=== PATIENT | male | born 1950 | race African-American/Black ===

== ENCOUNTER 2020-10-02 22:53 | Emergency (ER) | payer MEDICARE ==
[~2020-10-02] VITALS: Ht 165.1 cm; Wt 68.0 kg
[2020-10-02] MEDS ORDERED: fentaNYL PF VIAL 100 MCG/2 ML VIAL IM ONE (23:00)
[2020-10-03] MEDS ORDERED: HYDR-2759 PO (00:33)
--- NOTE | 2020-10-03 00:36 | PHYS DOC ---
General Adult EDM: Chief Complaint: MECHANICAL FALL HPI: HPI: Patient is a 70 year [id number] male presents for evaluation of left arm pain. Prior to arrival patient was rolling off of his couch and caught himself with an extended left upper extremity. Patient heard and felt a pop in his elbow and his shoulder. Sudden onset of pain and decreased mobility left upper extremity. Patient denies any other injuries. On exam patient pain is primarily in his shoulder region. Patient states difficulty flexing and extending his fingers. Patient's radial and ulnar pulses populated cap refill less than 2 seconds. Review of Systems: Review of Systems: Review of systems: Constitutional symptoms- No fever, no chills. Eyes- No Discharge, No Visual Loss Respiratory symptoms- No shortness of breath, No wheezing, No Dyspnea on Exertion Cardiovascular Systems; No chest pain, No Palpitations, No syncope Gastrointestinal symptoms: NO abdominal pain, no nausea, no vomiting or diarrhea. Genitourinary symptoms: No dysuria. Musculoskeletal symptoms: No back pain Positive extremity pain. NEUROLOGICAL Symptoms: No headache, no generalized weakness; No focal Weakness Skin: No rash. Heart Score: C/O Chest Pain: N/A Risk Factors: Risk Factors: DM, Current or recent (<one month) smoker, HTN, HLP, family history of CAD, obesity. Risk Scores: Score 0 - 3: 2.5% MACE over next 6 weeks - Discharge Home Score 4 - 6: 20.3% MACE over next 6 weeks - Admit for Clinical Observation Score 7 - 10: 72.7% MACE over next 6 weeks - Early Invasive Strategies Current Medications: Current Medications Medications (Trade) Dose Ordered Sig/[facility] Start Time Stop Time Status Last Admin Dose Admin Fentanyl Citrate (Fentanyl 2ml Vial) 50 mcg 1X ONCE 10/02/20 23:00 10/02/20 23:38 DC 10/02/20 23:37 50 MCG Allergies: Allergies: Allergies Coded Allergies Type Severity Reaction Last Updated Verified Penicillins Allergy Severe 10/02/20 Yes Physical Exam: PE: General: alert, no acute distress. Skin: warm, dry and intact, no erythema, no rash. HENT: bilateral external ears normal, oropharynx moist, nose normal. Head:: Normocephalic, atraumatic. Neck: Trachea midline. Eyes: EOMI, Normal conjunctiva, No drainage CARDIOVASCULAR: Regular rate and rhythm RESPIRATORY: No respiratory distress Back: Full range of motion. MUSCULOSKELETAL: decreased rom left upper extremity, tenderness proximal humerus, TTP mid shaft humerus, decreased extension of fingers, decreased steel melter, NV intact, CR<2 seconds LUE GASTROINTESTINAL: Abdomen soft without rebound or guarding. NEUROLOGICAL: Alert and noted to person, place and time. No neurological deficits observed Psychiatric: Cooperative. Normal judgment Current Patient Data: Vital Signs: Vital Signs Date Time Temp Pulse Resp B/P (MAP) Pulse Ox O2 Delivery O2 Flow Rate FiO2 10/02/20 23:37 16 99 EKG: EKG: [] Radiology/Procedures: Radiology/Procedures: [] Impression: wet read mid shaft humerus fracture with displacement proximal humerus fracture Course & Med Decision Making: Course & Med Decision Making Pertinent Labs and Imaging studies reviewed. (See chart for details) []LUE placed in sling. Treated with fentanyl 50mcg x 2. Rx norco Referred to Ortho Dr Desouza. Kenji Disclaimer: Kenji Disclaimer: This electronic medical record was generated, in whole or in part, using a voice recognition dictation system. Departure Departure Impression: Primary Impression: Closed fracture of humerus Disposition: 01 HOME / SELF CARE / HOMELESS Condition: STABLE Referrals: NO PCP (PCP) Patient Instructions: Humerus Fracture, Treated with Immobilization Scripts Hydrocodone/Acetaminophen (Hydrocodone-Acetamin 5-325 mg) 1 Each Tablet 1 EACH PO Q4-6HRS, #14 TAB Prov: CARLOTA MCNEAL DO 10/03/20 CARLOTA MCNEAL DO Oct 03, 2020 00:36
[2020-10-03] MEDS ORDERED: fentaNYL PF VIAL 100 MCG/2 ML VIAL IVP ONE (01:15)
[2020-10-03 01:30] VITALS: BP 157/67
--- NOTE | 2020-10-03 02:24 | RAD ---
Study: 1. XR HUMERUS_LT 2 VIEWS 2. XR SHOULDER_LEFT 2+ VIEWS Indication: Fall. Pain. Comparison: None. Findings: Two views of the left shoulder and left humerus. Comminuted, impaction type deformity of the greater tuberosity with a few millimeters of displacement . Best seen on the humerus radiographs is an apparent fracture fragment projecting along the superome dial humeral head. Acute spiral fracture of the mid to proximal humerus with nondisplaced fracture clefts extending up t o the surgical neck. The dominant fracture is displaced by approximately 1.5 cm and with foreshorteni ng by around 1.2 cm. No definitive fracture at the partially assessed elbow. Maintained shoulder girdle alignment. Glenohu meral more so than acromioclavicular joint arthrosis. Impression: Left shoulder and left humerus: 1. Acute spiral fracture of the proximal to mid humeral shaft with the dominant fracture displaced an d foreshortened, as above. Nondisplaced fracture clefts extend to the surgical neck. 2. Acute, comminuted impaction type fracture of the greater tuberosity with only a few millimeters of displacement. There appears to be extension of the fracture to the superomedial humeral head with a fracture fragment at this location best appreciated on the humeral radiographs as opposed to the dedi cated shoulder images. Electronically signed by: TOD VIZCAINO MD (10/03/2020 2:22 AM) [facility]
== END 2020-10-03 01:52 | disposition home or self-care (01) ==
LOC: ER 22:53
DX: S42.302A Unspecified fracture of shaft of humerus, left arm, initial encounter for closed fracture (principal); M25.522 Pain in left elbow; M25.512 Pain in left shoulder; Z88.0 Allergy status to penicillin; W18.39XA Other fall on same level, initial encounter; Y93.89 Activity, other specified; Y92.89 Other specified places as the place of occurrence of the external cause; Y99.8 Other external cause status
CPT/HCPCS: 73030; 73060; 96372; 96374; 99285; J3010

== ENCOUNTER 2020-10-05 13:36 | Day surgery (SDC) | payer MEDICARE ==
[~2020-10-05] VITALS: Ht 167.6 cm; Wt 66.0 kg
[~2020-10-05 13:36] MED LIST: HYDR-2759 PO; HYDROmorphone 2 MG/ML VIAL IVP PRN; IV RINGERS,LACTATED 1000ML 1,000 ML IV SCH; MORPHINE SULFATE 2 MG/ML INJ. IVP PRN; PROCHLORPERAZINE 10 MG/2 ML VIAL. IVP PRN; ceFAZolin SODIUM IV Push 1 GM VIAL. IVP PRN; fentaNYL PF VIAL 100 MCG/2 ML VIAL IVP PRN
[2020-10-05] MEDS ORDERED: OXYC1TAB15 PO (14:05)
[2020-10-05] MEDS ORDERED: fentaNYL PF VIAL 100 MCG/2 ML VIAL ONE ×2 (15:12→16:47)
[2020-10-05] MEDS ORDERED: ONDANSETRON PF 4 MG/2 ML VIAL. ONE (15:49)
[2020-10-05] MEDS ORDERED: SEVOFLURANE > 120 MINUTES. IH ONE (15:49)
[2020-10-05] MEDS ORDERED: LIDOCAINE 2% PF 5 ML VIAL. ONE (15:49)
[2020-10-05] MEDS ORDERED: PROPOFOL 10 MG/ML (20ML) VIAL. IV ONE (15:49)
[2020-10-05] MEDS ORDERED: DEXAMETHASONE SOD PHOS 4 MG/ML VIAL ONE (15:49)
--- NOTE | 2020-10-05 16:35 | DISCH ---
DISCHARGE INSTRUCTIONS Condition on Discharge Condition on Discharge: Stable Activity After Discharge Activity Instructions for Disc: Other, see below (Fine motor use of hand with arm close to side only, sling for support may remove to hang arm down and pendulum) Bathing Instructions: Shower-keep dressing dry Weight Bearing Status after Di: Non weight bearing Diet after Discharge Diet after Discharge: Regular Wound Incision Care Wound/Incision Care: Ice to area for comfort, Change dressing (May remove dressing in 3 days, cover for shower) Contacting the [facility] after DC Call your doctor for: Concerns you may have Follow-Up Follow up with: Dr. Desouza or Pam 10 days THUAN DESOUZA MD Oct 05, 2020 16:35
[2020-10-05] MEDS ORDERED: KETOROLAC 30 MG/ML VIAL. ONE (16:47)
[2020-10-05] MEDS ORDERED: hydrALAZINE 20 MG/ML VIAL. ONE (17:06)
[2020-10-05] MEDS: hydrALAZINE 20 MG/ML VIAL. IVP PRN ×2 (17:10→17:33)
[2020-10-05] MEDS ORDERED: oxyCODONE/APAP 5/325 1 TAB TABLET PO ONE (17:15)
[2020-10-05 17:40] VITALS: BP 170/73
--- NOTE | 2020-10-07 18:39 | PDOC4 ---
Operative Note Operative Note Date of surgery: 10/05/2020 Preoperative diagnosis: Displaced left humeral shaft fracture with proximal extension Postoperative diagnosis: Same Operative procedure: Operative reduction internal fixation left humerus shaft and surgical neck fractures Surgeon: Deo Assist: Myke gonsales Anesthesia: General Estimated blood loss: 75 cc Complications: None Operative indications: Please see my orthopedic clinic note for detailed operative indications and note that we had covered the possibility of ongoing radial nerve deficit as he has a current radial nerve deficit and he could experience other nerve or blood vessel damage medical or other anesthetic complications including infection nonhealing among others. He agrees to proceed with surgical evaluation and treatment Operative text: Patient was identified procedure verified patient placed in the supine position on the operating table. After adequate amounts of general anesthesia were administered he was placed in the beachchair position and the left upper extremity was prepped and draped in standard sterile fashion. After timeout was performed patient procedure identified and verified, a deltopectoral approach was carried out and extended distally. The humerus was reduced with interfragmentary screws and a low 7 hole Fernandez Alps plate was placed lateral to the biceps groove and a guidewire was placed low centrally in the humeral head and shaft fixation was carried out distally and proximally with a combination of pegs in the humeral head locking screws in the surgical neck portion and a combination of locking and nonlocking fixation distally in the shaft with anatomic reduction carried out of all fracture lines. Fixation was carried out proximal to the course of the radial nerve which did not undergo further compromise with surgical exposure. Thorough irrigation carried out normal saline solution and closure accomplished with buried Vicryl suture skin closure with eric sterile soft dressings were applied patient was returned to recovery room in stable condition having tolerated procedure well. Myke gonsales was present for the procedure assisted in patient positioning prepping draping retraction closure and dressings THUAN CALVO MD Oct 07, 2020 18:39
== END 2020-10-05 18:00 | disposition home or self-care (01) ==
LOC: SURG 13:36
PROVIDERS: ATTEND Orthopaedic Surgery
DX: S42.302A Unspecified fracture of shaft of humerus, left arm, initial encounter for closed fracture (principal); S42.212A Unspecified displaced fracture of surgical neck of left humerus, initial encounter for closed fracture; X58.XXXA Exposure to other specified factors, initial encounter; Y93.89 Activity, other specified; Y92.89 Other specified places as the place of occurrence of the external cause; I48.91 Unspecified atrial fibrillation; M19.90 Unspecified osteoarthritis, unspecified site; F17.210 Nicotine dependence, cigarettes, uncomplicated; Z79.899 Other long term (current) drug therapy; Z98.890 Other specified postprocedural states
CPT/HCPCS: 24515; 76000; A4565; A4928; A4930; A6253; A6402; C1713; J0360; J0690; J1100; J1885; J2405; J2704; J3010; A4322; A6454